=== PATIENT | female | born 1995 | race African-American/Black ===

== ENCOUNTER 2016-08-06 16:16 | Emergency (ER) | payer SELFPAY ==
[~2016-08-06] VITALS: Ht 162.6 cm; Wt 122.5 kg
[2016-08-06] MEDS ORDERED: KETOROLAC 15 MG/ML VIAL. IV ONE (19:15)
[2016-08-06] MEDS ORDERED: DIPHENHYDRAMINE 50 MG/ML VIAL IVP ONE (19:15)
[2016-08-06] MEDS ORDERED: METOCLOPRAMIDE HCL 10 MG/2 ML VIAL. IV ONE (19:15)
--- NOTE | 2016-08-06 20:04 | PHYS DOC ---
Past Medical History Past Medical History: Migraines Past Surgical History: No Surgical History Additional Information: 4-5 cigarettes daily Alcohol Use: None Drug Use: Marijuana Social History Narrative: occasional Adult General Chief Complaint Chief Complaint: HEADACHE HPI HPI Patient is a 21 year old female who presents with intermittent headaches for years, but headaches have been worse in the past few days. She has intermittent headaches that are achy, start posteriorly and generalize. Currently has a throbbing/aching headache. Headaches are gradual in onset and last minutes to hours. She has mild photophobia associated with her headaches as well as mild nausea. She has never had imaging for her headaches before. She denies head trauma, fever or chills, nausea or vomiting, vision changes, dizziness, numbness , tingling, weakness. She does not take any [id number] medications at home for headaches. Review of Systems Review of Systems Constitutional: Denies fever or chills [] Eyes: Denies change in visual acuity, redness, or eye pain [] HENT: Denies nasal congestion or sore throat [] Respiratory: Denies cough or shortness of breath [] Cardiovascular: No additional information not addressed in HPI [] GI: Denies abdominal pain, nausea, vomiting, bloody stools or diarrhea [] : Denies dysuria or hematuria [] Musculoskeletal: Denies back pain or joint pain [] Integument: Denies rash or skin lesions [] Neurologic: Denies focal weakness or sensory changes [] Endocrine: Denies polyuria or polydipsia [] Current Medications Current Medications Current Medications Medications (Trade) Dose Ordered Sig/Jessica Start Time Stop Time Status Last Admin Dose Admin Diphenhydramine HCl (Benadryl) 25 mg 1X ONCE 08/06/16 19:15 08/06/16 19:16 DC 08/06/16 19:32 25 MG Ketorolac Tromethamine (Toradol) 15 mg 1X ONCE 08/06/16 19:15 08/06/16 19:16 DC 08/06/16 19:35 15 MG Metoclopramide HCl (Reglan) 10 mg 1X ONCE 08/06/16 19:15 08/06/16 19:16 DC 08/06/16 19:37 10 MG Allergies Allergies Allergies Coded Allergies Type Severity Reaction Last Updated Verified No Known Drug Allergies 08/06/16 No Physical Exam Physical Exam Constitutional: Well developed, well nourished, no acute distress, non-toxic appearance. [] HENT: Normocephalic, atraumatic, bilateral external ears normal, oropharynx moist, nose normal. [] Eyes: PERRLA, EOMI, conjunctiva normal, no discharge. [] Neck: Normal range of motion, supple. [] Cardiovascular:Heart rate regular rhythm [] Lungs & Thorax: Bilateral breath sounds clear to auscultation [] Abdomen: Bowel sounds normal, soft, no tenderness. [] Skin: Warm, dry, no erythema, no rash. [] Back: Normal range of motion. [] Extremities: ROM intact, no edema. [] Neurologic: Alert and oriented X 3, normal motor function, normal sensory function, no focal deficits noted, cranial nerves II through XII intact. [] Psychologic: Affect normal, judgement normal, mood normal. [] Current Patient Data Vital Signs Vital Signs Date Time Temp Pulse Resp B/P Pulse Ox O2 Delivery O2 Flow Rate FiO2 08/06/16 18:14 98.2 66 20 120/56 99 Room Air 98.2 Course & Med Decision Making Course & Med Decision Making She is feeling much better after medications. Recommend she follow-up with neurology clinic for further investigation of her headaches. Return precautions given. She understands and agrees with plan. Dragon Disclaimer Rosalba Disclaimer This electronic medical record was generated, in whole or in part, using a voice recognition dictation system. Departure Departure Impression: Primary Impression: Headache Disposition: 01 HOME, SELF-CARE Condition: STABLE Referrals: CHELSEY HINES MD Patient Instructions: General Headache Without Cause, [id number] Additional Instructions: Take Tylenol or ibuprofen as needed for pain. Follow-up with neurology clinic. Please call for appointment. Return for any concerns. Scripts No Active Prescriptions or Reported Meds Problem Qualifiers Primary Impression: Headache Headache type: unspecified Headache chronicity pattern: episodic headache Intractability: not intractable Qualified Code: R51 - Headache Makayla WINKLER MD Aug 06, 2016 20:04
[2016-08-06 20:11] VITALS: BP 123/64
== END 2016-08-06 20:52 | disposition home or self-care (01) ==
LOC: ER 16:16
DX: R51 Headache (principal); H53.149 Visual discomfort, unspecified; R11.0 Nausea; G43.009 Migraine without aura, not intractable, without status migrainosus; F17.210 Nicotine dependence, cigarettes, uncomplicated; F12.10 Cannabis abuse, uncomplicated
CPT/HCPCS: 96374; 96375; 99284; J1200; J1885; J2765

== ENCOUNTER 2017-02-17 17:11 | Emergency (ER) | payer OTHER ==
[~2017-02-17] VITALS: Ht 165.1 cm; Wt 123.8 kg
[2017-02-17 17:46] LABS: BILIRUBIN,URINE NEGATIVE (NEG); GLUCOSE,URINE NEGATIVE (NEG); NITRITE,URINE NEGATIVE (NEG); PH,URINE 6.5; PROTEIN,URINE NEGATIVE (NEG-TRACE)
[2017-02-17 17:58] LABS: BACTERIA,URINE 0 /HPF (0-FEW); RBC,URINE 0 /HPF (0-2); SQUAMOUS EPITHELIAL CELL,UR OCC /LPF; WBC,URINE 0 /HPF (0-4)
--- NOTE | 2017-02-17 19:16 | RAD ---
OB <14 WKS W/TV History: Pelvic discomfort since termination 11/22/2016 Comparison: None. Findings: Multiple transabdominal sonographic images of the pelvis are submitted. Endometrium measured 1.2 cm. Left ovary measured 3.1 x 2 x 2.3 cm. There is a focus of relative hypoechogenicity of the left ovary 1.6 cm x 1.2 x 1.1 cm. Right ovary is not seen. Transvaginal ultrasound: Multiple transvaginal sonographic images of the pelvis are submitted. Uterus measured 10.4 x 5.3 x 5.7 cm. Endometrium measured 1.3 cm. There is a small quantity of free fluid. Cervix measured 3.8 cm in length. Right ovary measured 1.8 x 2.7 x 1.7 cm with normal low resistance vascularity. Left ovary measured 2.5 x 2.6 x 2.3 cm. There is a focus of different echogenicity of the left ovary on the order of 1.5 x 1.7 x 2.2 cm with internal echoes diffusely present. This is associated with some mild relative increased peripheral vascularity on color Doppler imaging. There is a small paraovarian cyst up to 0.7 cm. There is a small focus of hypoechogenicity in the endometrial cavity up to 0.4 cm greatest dimension. Impression: 1. There is a small nonspecific cystic focus in the endometrial cavity. While a small gestational sac cannot be excluded, there is no significant endometrial thickening. Correlation with quantitative beta hCG values and close interval follow-up imaging if needed is advised. 2. There is a focus of different echogenicity of the left ovary which may be due to sequela of hemorrhagic or corpus luteal cyst unless suspicion for ectopic for which close interval follow-up and correlation with beta hCG values is recommended. There is a small quantity of simple free fluid in the pelvis. Electronically signed by: Fernando Harvey MD (02/17/2017 7:13 PM) [facility]
[2017-02-17 19:22] VITALS: BP 115/71
[2017-02-17 19:27] LABS: BASO # 0.1 x10^3/uL (0.0-0.2); BASO % 1 % (0-3); EOS % 1 % (0-3); HEMATOCRIT 41.4 % (36.0-47.0); HEMOGLOBIN 13.7 g/dL (12.0-15.5); LYMPH # 2.3 x10^3/uL (1.0-4.8); LYMPH % 27 % (24-48); MEAN CORPUSCULAR HEMOGLOBIN 25 pg (25-35); MEAN CORPUSCULAR HGB CONC 33 g/dL (31-37); MEAN CORPUSCULAR VOLUME 76 fL (79-100); MONO % 8 % (0-9); NEUT % 64 % (31-73); PLATELET COUNT 241 x10^3/uL (140-400); RED BLOOD COUNT 5.44 x10^6/uL (3.50-5.40); RED CELL DISTRIBUTION WIDTH 14.8 % (11.5-14.5); WHITE BLOOD COUNT 8.8 x10^3/uL (4.0-11.0)
--- NOTE | 2017-02-17 19:28 | PHYS DOC ---
Past Medical History Past Medical History: Migraines Past Surgical History: No Surgical History Alcohol Use: Rarely Drug Use: Marijuana Adult General Chief Complaint Chief Complaint: PELVIC PAIN HPI HPI Patient is a 22 year old female presenting to the emergency department for evaluation of pelvic cramping that has been going on for the past several months and is worse over the past couple days and she is concerned there may have been a complication after her elective several months ago. She denies any fevers chills nausea vomiting dysuria hematuria vaginal bleeding or vaginal discharge. Patient denies any prior abdominal surgeries and she is in no obvious distress with normal vital signs. She says that can be no way she is currently as her boyfriend has had a vasectomy. Review of Systems Review of Systems Constitutional: Denies fever or chills [] Respiratory: Denies cough or shortness of breath [] Cardiovascular: No additional information not addressed in HPI [] GI: + abdominal pain. No nausea, vomiting, bloody stools or diarrhea [] : Denies dysuria or hematuria [] Musculoskeletal: Denies back pain or joint pain [] Integument: Denies rash or skin lesions [] Neurologic: Denies headache, focal weakness or sensory changes [] Allergies Allergies Allergies Coded Allergies Type Severity Reaction Last Updated Verified No Known Drug Allergies 08/06/16 No Physical Exam Physical Exam Constitutional: Well developed, well nourished, no acute distress, non-toxic appearance. [] Cardiovascular:Heart rate regular rhythm, no murmur [] Lungs & Thorax: Bilateral breath sounds clear to auscultation [] Abdomen: Bowel sounds normal, soft, no tenderness, no masses, no pulsatile masses. [] BUTTON TACKER exam revealed white vaginal discharge with mild cervical motion tenderness but no adnexal tenderness and a closed cervix. Current Patient Data Vital Signs Vital Signs Date Time Temp Pulse Resp B/P (MAP) Pulse Ox O2 Delivery O2 Flow Rate FiO2 02/17/17 19:22 78 20 115/71 (86) 97 Room Air 02/17/17 17:30 98.6 98.6 Lab Values Laboratory Tests Test 02/17/17 16:33 02/17/17 17:25 02/17/17 19:15 POC Urine HCG, Qualitative Hcg positive (Negative) Urine Color Yellow Urine Clarity Clear Urine pH 6.5 Urine Specific [place] 1.025 Urine Protein Negative mg/dL (NEG-TRACE) Urine Glucose (UA) Negative mg/dL (NEG) Urine Ketones (Stick) Negative mg/dL (NEG) Urine Blood Negative (NEG) Urine Nitrite Negative (NEG) Urine Bilirubin Negative (NEG) Urine Urobilinogen Dipstick 1.0 mg/dL (0.2 mg/dL) Urine Leukocyte Esterase Negative (NEG) Urine RBC 0 /HPF (0-2) Urine WBC 0 /HPF (0-4) Urine Squamous Epithelial Cells Occ /LPF Urine Bacteria 0 /HPF (0-FEW) White Blood Count 8.8 x10^3/uL (4.0-11.0) Red Blood Count 5.44 x10^6/uL (3.50-5.40) H Hemoglobin 13.7 g/dL (12.0-15.5) Hematocrit 41.4 % (36.0-47.0) Mean Corpuscular Volume 76 fL (79-100) L Mean Corpuscular Hemoglobin 25 pg (25-35) Mean Corpuscular Hemoglobin Concent 33 g/dL (31-37) Red Cell Distribution Width 14.8 % (11.5-14.5) H Platelet Count 241 x10^3/uL (140-400) Neutrophils (%) (Auto) 64 % (31-73) Lymphocytes (%) (Auto) 27 % (24-48) Monocytes (%) (Auto) 8 % (0-9) Eosinophils (%) (Auto) 1 % (0-3) Basophils (%) (Auto) 1 % (0-3) Neutrophils # (Auto) 5.6 x10^3uL (1.8-7.7) Lymphocytes # (Auto) 2.3 x10^3/uL (1.0-4.8) Monocytes # (Auto) 0.7 x10^3/uL (0.0-1.1) Eosinophils # (Auto) 0.1 x10^3/uL (0.0-0.7) Basophils # (Auto) 0.1 x10^3/uL (0.0-0.2) Maternal Serum HCG Beta Subunit 22 mIU/mL (0-5) H Sodium Level 139 mmol/L (136-145) Potassium Level 4.0 mmol/L (3.5-5.1) Chloride Level 102 mmol/L (98-107) Carbon Dioxide Level 29 mmol/L (21-32) Anion Gap 8 (6-14) Blood Urea Nitrogen 14 mg/dL (7-20) Creatinine 0.9 mg/dL (0.6-1.0) Estimated GFR (Cockcroft-Gault) 93.9 BUN/Creatinine Ratio 16 (6-20) Glucose Level 87 mg/dL (70-99) Calcium Level 9.0 mg/dL (8.5-10.1) Total Bilirubin 0.2 mg/dL (0.2-1.0) Aspartate Amino Transferase (AST) 14 U/L (15-37) L Alanine Aminotransferase (ALT) 22 U/L (14-59) Alkaline Phosphatase 68 U/L (46-116) Total Protein 7.7 g/dL (6.4-8.2) Albumin 3.5 g/dL (3.4-5.0) Albumin/Globulin Ratio 0.8 (1.0-1.7) L Laboratory Tests 02/17/17 19:15 Laboratory Tests 02/17/17 19:15 Microbiology 02/17/17 Wet Prep - Final, Complete EKG EKG [] Radiology/Procedures Radiology/Procedures OB <14 WKS W/TV History: Pelvic discomfort since termination 11/22/2016 Comparison: None. Findings: Multiple transabdominal sonographic images of the pelvis are submitted. Endometrium measured 1.2 cm. Left ovary measured 3.1 x 2 x 2.3 cm. There is a focus of relative hypoechogenicity of the left ovary 1.6 cm x 1.2 x 1.1 cm. Right ovary is not seen. Transvaginal ultrasound: Multiple transvaginal sonographic images of the pelvis are submitted. Uterus measured 10.4 x 5.3 x 5.7 cm. Endometrium measured 1.3 cm. There is a small quantity of free fluid. Cervix measured 3.8 cm in length. Right ovary measured 1.8 x 2.7 x 1.7 cm with normal low resistance vascularity. Left ovary measured 2.5 x 2.6 x 2.3 cm. There is a focus of different echogenicity of the left ovary on the order of 1.5 x 1.7 x 2.2 cm with internal echoes diffusely present. This is associated with some mild relative increased peripheral vascularity on color Doppler imaging. There is a small paraovarian cyst up to 0.7 cm. There is a small focus of hypoechogenicity in the endometrial cavity up to 0.4 cm greatest dimension. Impression: 1. There is a small nonspecific cystic focus in the endometrial cavity. While a small gestational sac cannot be excluded, there is no significant endometrial thickening. Correlation with quantitative beta hCG values and close interval follow-up imaging if needed is advised. 2. There is a focus of different echogenicity of the left ovary which may be due to sequela of hemorrhagic or corpus luteal cyst unless suspicion for ectopic for which close interval follow-up and correlation with beta hCG values is recommended. There is a small quantity of simple free fluid in the pelvis. Electronically signed by: Raza Rmairez MD (02/17/2017 7:13 PM) [facility] DICTATED and SIGNED BY: RAZA RAMIREZ MD DATE: 02/17/171907 Course & Med Decision Making Course & Med Decision Making I informed patient that she is and this could be a normal or an ectopic . Her ultrasound is equivocal given how low her hCG is make sense. She says that she is not going to keep this and she is going to follow with [facility] I told her if she did not do that she needed to follow with an OB in 2-3 days to have repeat hCG testing and to come back to the ER sooner with worsening pain fevers vomiting or other general concerns. Patient aware and agreeable with plan and verbalized understanding of the above instructions. Dragon Disclaimer Dragon Disclaimer This electronic medical record was generated, in whole or in part, using a voice recognition dictation system. Departure Departure Impression: Primary Impression: Bacterial vaginosis Additional Impression: Pelvic pain Disposition: 01 HOME, SELF-CARE Condition: GOOD Referrals: NO PCP (PCP) Patient Instructions: Bacterial Vaginosis Scripts Metronidazole (FLAGYL) 500 Mg Tablet 1 TAB PO BID, #14 TAB Prov: MARK EVANS DO 02/17/17 Problem Qualifiers MARK EVANS DO Feb 17, 2017 19:28
[2017-02-17 19:43] LABS: CREATININE 0.9 mg/dL (0.6-1.0); GFR 93.9
[2017-02-17 19:49] LABS: ALBUMIN 3.5 g/dL (3.4-5.0); ALBUMIN/GLOBULIN RATIO 0.8 (1.0-1.7); TOTAL BILIRUBIN 0.2 mg/dL (0.2-1.0); TOTAL PROTEIN 7.7 g/dL (6.4-8.2)
[2017-02-17] MEDS ORDERED: METR500T PO (20:06)
== END 2017-02-17 20:23 | disposition home or self-care (01) ==
LOC: ER 17:11
DX: O23.599 Infection of other part of genital tract in pregnancy, unspecified trimester (principal); N76.0 Acute vaginitis; B96.89 Other specified bacterial agents as the cause of diseases classified elsewhere; O99.320 Drug use complicating pregnancy, unspecified trimester; F12.10 Cannabis abuse, uncomplicated; O99.350 Diseases of the nervous system complicating pregnancy, unspecified trimester; G43.909 Migraine, unspecified, not intractable, without status migrainosus; Z3A.00 Weeks of gestation of pregnancy not specified
CPT/HCPCS: 36415; 76801; 76817; 80053; 81001; 81025; 84702; 85027; 86850; 86900; 86901; 87491; 87591; 99285; Q0111

== ENCOUNTER 2017-02-22 11:42 | Emergency (ER) | payer OTHER ==
[~2017-02-22] VITALS: Ht 165.1 cm; Wt 123.8 kg
[~2017-02-22 11:42] MED LIST: METR500T PO
[2017-02-22 12:07] LABS: BASO % 1 % (0-3); EOS % 1 % (0-3); HEMOGLOBIN 13.7 g/dL (12.0-15.5); LYMPH # 1.6 x10^3/uL (1.0-4.8); LYMPH % 21 % (24-48); MEAN CORPUSCULAR HEMOGLOBIN 25 pg (25-35); MEAN CORPUSCULAR HGB CONC 33 g/dL (31-37); MEAN CORPUSCULAR VOLUME 77 fL (79-100); MONO % 10 % (0-9); NEUT % 67 % (31-73); PLATELET COUNT 239 x10^3/uL (140-400); RED BLOOD COUNT 5.46 x10^6/uL (3.50-5.40); RED CELL DISTRIBUTION WIDTH 14.7 % (11.5-14.5); WHITE BLOOD COUNT 7.4 x10^3/uL (4.0-11.0)
[2017-02-22 12:32] LABS: BILIRUBIN,URINE NEGATIVE (NEG); GLUCOSE,URINE NEGATIVE (NEG); NITRITE,URINE NEGATIVE (NEG); PH,URINE 6.5; PROTEIN,URINE NEGATIVE (NEG-TRACE); UROBILINOGEN,URINE 0.2 mg/dL (0.2 mg/dL)
[2017-02-22 12:40] LABS: BACTERIA,URINE FEW /HPF (0-FEW); RBC,URINE OCC /HPF (0-2); WBC,URINE OCC /HPF (0-4)
[2017-02-22 12:41] LABS: SQUAMOUS EPITHELIAL CELL,UR MANY /LPF
[2017-02-22 14:11] VITALS: BP 129/80
[2017-02-22] MEDS ORDERED: ACETAMINOPHEN 500 MG TABLET PO ONE (14:15)
[2017-02-22] MEDS ORDERED: HYDROcodone/APAP 5/325MG 1 TAB TABLET PO ONE (14:15)
--- NOTE | 2017-02-22 14:20 | ED.ADGEN ---
Past Medical History Past Medical History: Migraines Past Surgical History: No Surgical History Alcohol Use: Rarely Drug Use: Marijuana Adult General Chief Complaint Chief Complaint: ABDOMINAL PAIN IN HPI HPI Patient is a 22 year old AA female who was evaluated in this emergency department 5 days ago for abdominal pain. Patient was diagnosed with bacterial vaginosis, ovarian cyst and early . Patient has been eating hCG Quant was 22 at time of ED visit. Patient presents with persistent left lower quadrant pain. She denies worsening of symptoms vaginal bleeding cramping. She does not have fever chills, flank pain or hematuria. Patient states she did not fill the antibiotics that were prescribed and has not taken any pain medication prior to ED arrival. Rather, the patient did schedule follow-up appointment with her OB this Tuesday. She denies any other acute symptoms or complaints. Review of Systems Review of Systems ROS as per HPI. Current Medications Current Medications Current Medications Medications (Trade) Dose Ordered Sig/Jessica Start Time Stop Time Status Last Admin Dose Admin Acetaminophen (Tylenol) 1,000 mg 1X ONCE 02/22/17 14:15 02/22/17 14:16 02/22/17 14:11 1,000 MG Acetaminophen/ Hydrocodone Bitart (Lortab 5/325) 1 tab 1X ONCE 02/22/17 14:15 02/22/17 14:16 Allergies Allergies Allergies Coded Allergies Type Severity Reaction Last Updated Verified No Known Drug Allergies 08/06/16 No Physical Exam Physical Exam Constitutional: Well developed, well nourished, no acute distress, non-toxic appearance. [] HENT: Normocephalic, atraumatic, bilateral external ears normal, oropharynx moist, no oral exudates, nose normal. [] Eyes: PERRLA, EOMI, conjunctiva normal, no discharge. [] Neck: Normal range of motion, no tenderness, supple, no stridor. [] Cardiovascular:Heart rate regular rhythm, no murmur [] Lungs & Thorax: Bilateral breath sounds clear to auscultation [] Abdomen: Bowel sounds normal, soft, left lower quadrant pain, mild tenderness, no rebound rigidity or guarding [] Skin: Warm, dry, no erythema, no rash. [] Back: No tenderness, no CVA tenderness. [] Extremities: No tenderness, no cyanosis, no clubbing, ROM intact, no edema. [] Neurologic: Alert and oriented X 3, normal motor function, normal sensory function, no focal deficits noted. [] Psychologic: Affect normal, judgement normal, mood normal. [] Current Patient Data Vital Signs Vital Signs Date Time Temp Pulse Resp B/P (MAP) Pulse Ox O2 Delivery O2 Flow Rate FiO2 02/22/17 14:11 84 20 129/80 (96) 99 02/22/17 11:57 98.7 Room Air 98.7 Lab Values Laboratory Tests Test 02/22/17 11:53 02/22/17 12:00 Urine Collection Type Unknown Urine Color Yellow Urine Clarity Clear Urine pH 6.5 Urine Specific [place] 1.015 Urine Protein Negative mg/dL (NEG-TRACE) Urine Glucose (UA) Negative mg/dL (NEG) Urine Ketones (Stick) Negative mg/dL (NEG) Urine Blood Negative (NEG) Urine Nitrite Negative (NEG) Urine Bilirubin Negative (NEG) Urine Urobilinogen Dipstick 0.2 mg/dL (0.2 mg/dL) Urine Leukocyte Esterase Negative (NEG) Urine RBC Occ /HPF (0-2) Urine WBC Occ /HPF (0-4) Urine Squamous Epithelial Cells Many /LPF Urine Bacteria Few /HPF (0-FEW) Urine Mucus Slight /LPF White Blood Count 7.4 x10^3/uL (4.0-11.0) Red Blood Count 5.46 x10^6/uL (3.50-5.40) H Hemoglobin 13.7 g/dL (12.0-15.5) Hematocrit 42.0 % (36.0-47.0) Mean Corpuscular Volume 77 fL (79-100) L Mean Corpuscular Hemoglobin 25 pg (25-35) Mean Corpuscular Hemoglobin Concent 33 g/dL (31-37) Red Cell Distribution Width 14.7 % (11.5-14.5) H Platelet Count 239 x10^3/uL (140-400) Neutrophils (%) (Auto) 67 % (31-73) Lymphocytes (%) (Auto) 21 % (24-48) L Monocytes (%) (Auto) 10 % (0-9) H Eosinophils (%) (Auto) 1 % (0-3) Basophils (%) (Auto) 1 % (0-3) Neutrophils # (Auto) 5.0 x10^3uL (1.8-7.7) Lymphocytes # (Auto) 1.6 x10^3/uL (1.0-4.8) Monocytes # (Auto) 0.7 x10^3/uL (0.0-1.1) Eosinophils # (Auto) 0.1 x10^3/uL (0.0-0.7) Basophils # (Auto) 0.0 x10^3/uL (0.0-0.2) Maternal Serum HCG Beta Subunit 348 mIU/mL (0-5) H Laboratory Tests 02/22/17 12:00 EKG EKG [] Radiology/Procedures Radiology/Procedures [] Course & Med Decision Making Course & Med Decision Making Pertinent Labs and Imaging studies reviewed. (See chart for details) [Left lower quadrant pain/tenderness without new or worsening symptoms since previous ED evaluation. Tylenol given for pain. HCG Quant still continues to rise is but is below the dermal discriminatory zone. Recommend the patient fill and boxes. Little sleep prescribed and follow-up with her OB in 3 days as scheduled. Return precautions reviewed.] Dragon Disclaimer Dragon Disclaimer This electronic medical record was generated, in whole or in part, using a voice recognition dictation system. TASHA NICHOLAS DO Feb 22, 2017 14:20
== END 2017-02-22 14:27 | disposition home or self-care (01) ==
LOC: ER 11:42
DX: O26.891 Other specified pregnancy related conditions, first trimester (principal); R10.32 Left lower quadrant pain; F12.10 Cannabis abuse, uncomplicated; G43.909 Migraine, unspecified, not intractable, without status migrainosus; Z3A.00 Weeks of gestation of pregnancy not specified
CPT/HCPCS: 36415; 81001; 84702; 85027; 99283; 99284

== ENCOUNTER 2017-09-10 16:56 | Observation (INO) | payer OTHER ==
[2017-09-10] MEDS ORDERED: IV RINGERS,LACTATED 1000ML 1,000 ML IV ×2 (17:34)
[2017-09-10 17:45] LABS: BILIRUBIN,URINE NEGATIVE (NEG); CLARITY,URINE CLEAR; COLOR,URINE YELLOW; GLUCOSE,URINE NEGATIVE (NEG); NITRITE,URINE NEGATIVE (NEG); PROTEIN,URINE NEGATIVE (NEG-TRACE); UROBILINOGEN,URINE 0.2 mg/dL (0.2 mg/dL)
[2017-09-10 17:53] LABS: BACTERIA,URINE MANY /HPF (0-FEW); RBC,URINE 0 /HPF (0-2); SQUAMOUS EPITHELIAL CELL,UR MANY /LPF
== END 2017-09-10 18:59 | disposition home or self-care (01) ==
LOC: 3 SO LND 16:56
DX: O26.893 Other specified pregnancy related conditions, third trimester (principal); R10.9 Unspecified abdominal pain; Z3A.33 33 weeks gestation of pregnancy
CPT/HCPCS: 81001; 87086; G0378; G0379

== ENCOUNTER 2017-10-02 22:29 | Observation (INO) | payer OTHER ==
[2017-10-02] MEDS ORDERED: IV RINGERS,LACTATED 1000ML 1,000 ML IV (22:45)
[2017-10-02 22:55] LABS: BILIRUBIN,URINE NEGATIVE (NEG); CLARITY,URINE CLEAR; COLOR,URINE YELLOW; GLUCOSE,URINE NEGATIVE (NEG); NITRITE,URINE NEGATIVE (NEG); PH,URINE 6.5; PROTEIN,URINE NEGATIVE (NEG-TRACE); UROBILINOGEN,URINE 0.2 mg/dL (0.2 mg/dL)
[2017-10-02 23:01] LABS: BARBITURATES NEG (NEG); BENZODIAZEPINES NEG (NEG); CANNABINOIDS POS (NEG); COCAINE NEG (NEG); METHADONE NEG (NEG); OPIATES NEG (NEG); PHENCYCLIDINE NEG (NEG)
[2017-10-02 23:02] LABS: AMPHETAMINE/METHAMPHETAMINE NEG (NEG); ETHANOL, URINE NEG (NEG)
[2017-10-02 23:05] LABS: RBC,URINE 0 /HPF (0-2)
[2017-10-02 23:06] LABS: BACTERIA,URINE MODERATE /HPF (0-FEW); SQUAMOUS EPITHELIAL CELL,UR MANY /LPF
== END 2017-10-02 23:49 | disposition home or self-care (01) ==
LOC: 3 SO LND 22:29
DX: O26.893 Other specified pregnancy related conditions, third trimester (principal); R10.9 Unspecified abdominal pain; Z3A.36 36 weeks gestation of pregnancy
CPT/HCPCS: 80307; 81001; 87086; G0378; G0379

== ENCOUNTER 2020-11-05 22:48 | Emergency (ER) | payer SELFPAY ==
[~2020-11-05] VITALS: Ht 165.1 cm; Wt 131.8 kg
--- NOTE | 2020-11-05 23:43 | PHYS DOC ---
Past Medical History Past Medical History: No Pertinent History, Migraines Past Surgical History: No Surgical History, Oophorectomy, Tubal ligation, Other Smoking Status: Current Every Day Smoker Alcohol Use: Occasionally Drug Use: Marijuana General Adult EDM: Chief Complaint: RIB PAIN HPI: HPI: Patient is a 25 year old female who presents to the emergency department with right-sided rib pain. Patient states that her right side ribs have been having a 8 out of 10 sharp pain for the past couple of hours. She is not experiencing any fevers, chills, shortness of breath, wheezing but had a cold last week where she was coughing up a lot of phlegm. Patient states that she has not tried any medications for her pain and it only hurts with deep inhalation. She had no trauma to the area and the skin is tender to the touch on her right back and side. Review of Systems: Review of Systems: Review of systems: Constitutional symptoms- No fever, no chills. Eyes- No Discharge, No Visual Loss Respiratory symptoms- No shortness of breath, No wheezing, No Dyspnea on Exertion Cardiovascular Systems; positive right-sided rib pain, No Palpitations, No syncope Gastrointestinal symptoms: NO abdominal pain, no nausea, no vomiting or diarrhea. Genitourinary symptoms: No dysuria. Musculoskeletal symptoms: Positive right lower back skin pain No extremity pain. NEUROLOGICAL Symptoms: No headache, no generalized weakness; No focal Weakness Heart Score: C/O Chest Pain: N/A Risk Factors: Risk Factors: DM, Current or recent (<one month) smoker, HTN, HLP, family history of CAD, obesity. Risk Scores: Score 0 - 3: 2.5% MACE over next 6 weeks - Discharge Home Score 4 - 6: 20.3% MACE over next 6 weeks - Admit for Clinical Observation Score 7 - 10: 72.7% MACE over next 6 weeks - Early Invasive Strategies Allergies: Allergies: Allergies Coded Allergies Type Severity Reaction Last Updated Verified No Known Drug Allergies 08/06/16 No Physical Exam: PE: General: alert, no acute distress. Skin: warm, dry and intact, no apparent rash. Head:: Normocephalic, atraumatic. Neck: Trachea midline. Eyes: EOMI, Normal conjunctiva, No drainage CARDIOVASCULAR: Regular rate and rhythm RESPIRATORY: No respiratory distress, CTAB Back: Full range of motion. MUSCULOSKELETAL: Full range of motion of bilateral upper and lower extremities. GASTROINTESTINAL: Abdomen soft without rebound or guarding. NEUROLOGICAL: Alert and noted to person, place and time. No neurological deficits observed Psychiatric: Cooperative. Normal judgment Current Patient Data: Labs: Laboratory Tests Test 11/05/20 22:54 POC Urine HCG, Qualitative Hcg negative (Negative) Vital Signs: Vital Signs Date Time Temp Pulse Resp B/P (MAP) Pulse Ox O2 Delivery O2 Flow Rate FiO2 11/05/20 22:55 98.5 84 26 110/60 (77) 98 Room Air 98.5 EKG: EKG: [] Radiology/Procedures: Radiology/Procedures: [] Impression: No displaced rib fracture identified on the right. No focal airspace infiltrate, pleural effusion or pneumothorax. Unremarkable cardiomediastinal silhouette and arabella. Impression: No displaced rib fracture on the right. Course & Med Decision Making: Course & Med Decision Making Pertinent Labs and Imaging studies reviewed. (See chart for details) [] Patient was evaluated for chief complaint. Work-up consisted of radiologic imaging. X-ray no acute fractures. Suspect muscular skeletal pain due to recent cough. Will Rx potassium with codeine and Zithromax Rosalba Disclaimer: Rosalba Disclaimer: This electronic medical record was generated, in whole or in part, using a voice recognition dictation system. Departure Departure Impression: Primary Impression: Musculoskeletal chest pain Additional Impressions: Rib pain Cough Disposition: HOME / SELF CARE / HOMELESS Condition: STABLE Referrals: NO PCP (PCP) Patient Instructions: Cough, Adult, Musculoskeletal Pain Scripts Guaifenesin/Codeine Phosphate (Codeine-Guaifen 10-100 mg/5 ml) 120 Ml Liquid 10-May ML PO PRN Q4HRS PRN for cough and congestion MDD 60 Milliliter(s) for 4 Days, #200 ML 0 Refills Prov: TAYLOR ESTEVEZ DO 11/05/20 Azithromycin (ZITHROMAX) 250 Mg Tablet 1 PKG PO UD, #6 TAB Prov: TAYLOR ESTEVEZ DO 11/05/20 TAYLOR ESTEVEZ DO Nov 05, 2020 23:43
--- NOTE | 2020-11-05 23:51 | RAD ---
Study: XR RIBS MIN 3 VIEWS RT W/PA CHEST Indication: Rib pain. Comparison: None. Findings: No displaced rib fracture identified on the right. No focal airspace infiltrate, pleural effusion or pneumothorax. Unremarkable cardiomediastinal silhou ette and arabella. Impression: No displaced rib fracture on the right. Electronically signed by: MJ LINCOLN MD (11/05/2020 11:49 PM) [facility]
[2020-11-05] MEDS ORDERED: GUAI120L35 PO (23:59)
[2020-11-05] MEDS ORDERED: AZIT250T PO (23:59)
[2020-11-06] MEDS ORDERED: KETOROLAC 60 MG/2 ML VIAL. IM ONE
[2020-11-06 00:20] VITALS: BP 128/68
== END 2020-11-06 00:30 | disposition home or self-care (01) ==
LOC: ER 22:48
DX: R07.81 Pleurodynia (principal); R05 Cough; G43.909 Migraine, unspecified, not intractable, without status migrainosus; F17.200 Nicotine dependence, unspecified, uncomplicated
CPT/HCPCS: 71101; 81025; 96372; 99283; J1885